=== PATIENT | female | born 1985 | race African-American/Black ===

== ENCOUNTER 2020-02-01 16:52 | Emergency (ER) | payer SELFPAY ==
[2020-02-01] MEDS ORDERED: SODIUM CHLORIDE 1,000 ML IV STA ×2 (17:06→21:45)
--- NOTE | 2020-02-01 17:07 | PDOC ---
Rapid Medical Evaluation Time Seen by Provider: 02/01/20 17:05 Medical Evaluation: 02/01/20 17:06 CC: felt dizzy after getting out of shower, hx of the same and anemia, currently menstruating Exam: bp slightly low, normal color, Plan: labs, ivf, urine Discharge Disposition - Diagnosis Dizziness - Referrals - Patient Instructions - Post Discharge Activity
[2020-02-01 17:08] VITALS: TEMP 98.2; BMI 18.8
[2020-02-01] MEDS ORDERED: ACETAMINOPHEN 1000 MG/100 ML VIAL (NON FORMULARY) IVPB ONE (18:01)
--- NOTE | 2020-02-01 18:08 | PDOC ---
History of Present Illness - General Chief Complaint: Lightheaded Stated Complaint: DIZZINESS Time Seen by Provider: 02/01/20 17:05 History Source: Patient Exam Limitations: No Limitations - History of Present Illness Initial Comments: 02/01/20 18:03 35-year-old female history of asthma, anemia, insomnia, depression on trazodone, polysubstance abuse called EMS for syncope. Patient states she began to menstruate today, took a warm shower, stepped out of the shower and " blacked out " approximately 2 hours ago. Patient states that this has occurred in the past during her menses. Denies preceding symptoms such as chest pain, shortness of breath, dizziness, abdominal pain or any other complaint. Patient admits to daily tobacco and marijuana smoke. Last crack use was 2 months ago, last alcohol intake was 3 days ago. ROS: as above PE: GENERAL: well-appearing, NAD, thin female, poor dentition HEAD: NCAT EYES: EOMI, Pupils equal, round and reactive to light, sclera anicteric, conjunctiva clear ENT: pharynx: no erythema, no exudate, uvula midline NECK: supple CHEST: nontender, no crepitus RESP: clear, no w/r/r CARDIO: rrr, no m/g/r ABD: +BS, soft, nontender, non distended BACK: no midline spinal ttp, no CVAT EXTREMITIES: Normal range of motion, no edema NEUROLOGICAL: Normal speech SKIN: Warm, Dry Is this a multiple visit Asthma Patient?: No Past History - Medical History Allergies/Adverse Reactions: Allergies Allergy/AdvReac Type Severity Reaction Status Date / Time fish derived Allergy Rash Verified 02/01/20 18:15 milk Allergy Verified 02/01/20 18:16 Anemia: Yes Asthma: Yes COPD: No Psychiatric Problems: Yes (Depression, bipolar) - Reproductive History Is Patient Now?: No - Psycho-Social/Smoking History Smoking History: Never smoked Have you smoked in the past 12 months: Yes Number of Cigarettes Smoked Daily: 2 Information on smoking cessation initiated: Yes - Substance Abuse Hx (Audit-C & DAST Scrn) How often the patient has a drink containing alcohol: Never Score: In Men: 4 or > Positive; In Women: 3 or > Positive: 0 Screen Result (Pos requires Nsg. Audit-10AR): Negative In the last yr the pt used illegal drug/Rx for NonMed reason: Yes Score: Yes response is considered Positive: 1 Screen Result (Positive result requires Nsg. DAST-10): Positive *Physical Exam - Vital Signs Last Vital Signs Temp Pulse Resp BP Pulse Ox 98.2 F 73 18 97/68 99 02/01/20 17:02 02/01/20 17:02 02/01/20 17:02 02/01/20 17:02 02/01/20 17:02 ED Treatment Course - LABORATORY CBC & Chemistry Diagram: 02/01/20 18:00 02/01/20 18:00 - RADIOLOGY Radiology Studies Ordered: Category Date Time Status CHEST PA & LAT [RAD] Stat Radiology 02/01/20 18:00 Ordered Medical Decision Making - Medical Decision Making 02/01/20 18:06 35-year-old female history of asthma, anemia called EMS for syncope. Patient states she began to menstruate today, took a warm shower, stepped out of the shower and " blacked out " approximately 2 hours ago. Patient states that this has occurred in the past during her menses. Denies preceding symptoms such as chest pain, shortness of breath, dizziness, abdominal pain or any other complaint. Patient admits to daily tobacco and marijuana smoke. Last crack use was 2 months ago, last alcohol intake was 3 days ago. Syncope BP 97/68, HR 73 labs ordered by [facility] provider urine troponin ecg, cxr IVF IV acetaminophen re assess 7:07pm patient sleeping comfortably in stretcher signed out to KEVIN Reich Discharge - Discharge Information Problems reviewed: Yes Clinical Impression/Diagnosis: Syncope Qualifiers: Syncope type: unspecified Qualified Code(s): R55 - Syncope and collapse Clinical Impression/Diagnosis: (Ruled Out): Dizziness Condition: Stable - Follow up/Referral - Patient Discharge Instructions - Post Discharge Activity
--- OUTSIDE RECORDS SUMMARY | 2020-02-01 18:09 | XMS ---
:1985 Author Organization [facility] Support Name Relationship Address Phone UE Unavailable Unavailable Unavailable [address] [phone] [place] [address] Re-disclosure Warning The records that you are about to access may contain information from federally- assisted alcohol or drug abuse programs. If such information is present, then the following federally mandated warning applies: This information has been disclosed to you from records protected by federal confidentiality rules (42 CFR part 2). The federal rules prohibit you from making any further disclosure of this information unless further disclosure is expressly permitted by the written consent of the person to whom it pertains or as otherwise permitted by 42 CFR part 2. A general authorization for the release of medical or other information is NOT sufficient for this purpose. The Federal rules restrict any use of the information to criminally investigate or prosecute any alcohol or drug abuse patient.The records that you are about to access may contain highly sensitive health information, the redisclosure of which is protected by Article 27-F of the [facility] Public Health law. If you continue you may haveaccess to information: Regarding HIV / AIDS; Provided by facilities licensed or operated by the [facility] Office of Mental Health; or Provided by the [facility] Office for People With Developmental Disabilities. If such information is present, then the following [facility] mandated warning applies: This information has been disclosed to you from confidential records which are protected by state law. State law prohibits you from making any further disclosure of this information without the specific written consent of the person to whom it pertains, or as otherwise permitted by law. Any unauthorized further disclosure in violation of state law may result in a fine or halfway sentence or both. A general authorization for the release of medical or other information is NOT sufficient authorization for further disclosure. Insurance Providers Payer name Policy type Policy ID Covered Covered alliance party's Policy P lyudmila / Coverage alliance party ID relationship to [place] [facility] type reno SELF PAY SP INSURANCE
[2020-02-01 18:16] LABS: BASO % 0.6 % (0-2.0); EOS % 4.2 % (0-4.5); HEMATOCRIT 38.5 % (32.4-45.2); HEMOGLOBIN 12.6 GM/dL (10.7-15.3); LYMPH % 44.4 % (8-40); MCH 28.2 pg (25.7-33.7); MCHC 32.7 g/dl (32.0-36.0); MEAN CELL VOLUME 86.3 fl (80-96); MEAN PLT VOLUME 9.8 fl (7.5-11.1); MONO % 17.4 % (3.8-10.2); NEUT % 33.4 % (42.8-82.8); PLATELET COUNT 173 K/MM3 (134-434); RBC 4.47 M/mm3 (3.60-5.2); RDW 14.2 % (11.6-15.6); WHITE BLOOD COUNT 3.1 K/mm3 (4.0-10.0)
[2020-02-01 18:31] LABS: CHLORIDE 102 mmol/L (98-107); POTASSIUM 3.9 mmol/L (3.5-5.1); SODIUM 137 mmol/L (136-145)
[2020-02-01 18:34] LABS: ALBUMIN 3.4 g/dl (3.4-5.0); ANION GAP 7 MMOL/L (8-16); BLOOD UREA NITROGEN 9.4 mg/dL (7-18); CALCIUM 8.9 mg/dL (8.5-10.1); CO2 27 mmol/L (21-32); GLUCOSE,RANDOM 92 mg/dL (74-106)
[2020-02-01 18:36] LABS: CREATININE 0.7 mg/dL (0.55-1.3); SGOT/AST 27 U/L (15-37); SGPT/ALT 18 U/L (13-61)
[2020-02-01 18:39] LABS: ALK PHOS 86 U/L (45-117); BILIRUBIN,TOTAL 0.3 mg/dL (0.2-1); TOT PROT 7.8 g/dl (6.4-8.2)
--- NOTE | 2020-02-01 20:04 | PDOC ---
*Physical Exam - Vital Signs Last Vital Signs Temp Pulse Resp BP Pulse Ox 98.2 F 73 18 97/68 99 02/01/20 17:02 02/01/20 17:02 02/01/20 17:02 02/01/20 17:02 02/01/20 17:02 - Physical Exam General Appearance: Yes: Appropriately Dressed, Other (asleep arousable. ) ED Treatment Course - LABORATORY CBC & Chemistry Diagram: 02/01/20 18:00 02/01/20 18:00 - ADDITIONAL ORDERS Additional order review: Laboratory Results 02/01/20 02/01/20 18:00 18:00 Sodium 137 Potassium 3.9 Chloride 102 Carbon Dioxide 27 Anion Gap 7 L BUN 9.4 Creatinine 0.7 Est GFR (CKD-EPI)AfAm 130.10 Est GFR (CKD-EPI)NonAf 112.25 Random Glucose 92 Calcium 8.9 Total Bilirubin 0.3 AST 27 ALT 18 Alkaline Phosphatase 86 Total Protein 7.8 Albumin 3.4 Blood Type B POSITIVE Antibody Screen Negative 02/01/20 18:00 RBC 4.47 MCV 86.3 MCHC 32.7 RDW 14.2 MPV 9.8 Neutrophils % 33.4 L Lymphocytes % 44.4 H Monocytes % 17.4 H Eosinophils % 4.2 Basophils % 0.6 - Medications Given in the ED: ED Medications Discontinued Medications Generic Name Dose Route Start Last Admin Trade Name Freq PRN Reason Stop Dose Admin Acetaminophen 1,000 mg 02/01/20 18:01 02/01/20 18:14 Ofirmev Injection - IVPB 02/01/20 18:02 1,000 mg ONCE ONE Administration Sodium Chloride 1,000 mls @ 1,000 mls/hr 02/01/20 17:06 02/01/20 18:07 Normal Saline - IV 02/01/20 18:05 1,000 mls/hr ASDIR STA Administration Medical Decision Making - Medical Decision Making 02/01/20 20:03 Ua pending. 02/01/20 21:46 ua + 1 leuks with bacteria will treat. b/p low. will give NS bolus and reevaluate. 02/01/20 22:32 patient alert awake. b/p 103/77. pulse 77. patient in no distress. will d/c home. patient reports that she is getting picked up by her uncle. Discharge - Discharge Information Problems reviewed: Yes Clinical Impression/Diagnosis: Syncope Qualifiers: Syncope type: unspecified Qualified Code(s): R55 - Syncope and collapse UTI (urinary tract infection) Qualifiers: Urinary tract infection type: acute cystitis Hematuria presence: without hematuria Qualified Code(s): N30.00 - Acute cystitis without hematuria Condition: Stable Disposition: HOME - Additional Discharge Information Prescriptions: Cephalexin Monohydrate [Keflex -] 500 mg PO BID #14 capsule - Follow up/Referral - Patient Discharge Instructions Patient Printed Discharge Instructions: DI for Syncope in Adults (Fainting) Additional Instructions: Take cephalexin as prescribed. Drink plenty of fluids. Follow-up with your do ctor soon as possible return to the emergency room for any worsening symptoms - Post Discharge Activity Work/Back to School Note: Back to Work
[2020-02-01 20:43] LABS: EPI CELLS 17 /uL (0-25.1); HYALINE CASTS 0 /uL (0-3.1); PH,URINE 6.5 (5.0-8.0); URINE APPEARANCE CLEAR; URINE BACTERIA 598 /uL (0-1359); URINE BILIRUBIN NEGATIVE (NEGATIVE); URINE COLOR ORANGE; URINE GLUCOSE (UA) NEGATIVE (NEGATIVE); URINE KETONE NEGATIVE (NEGATIVE); URINE LEUK ESTERASE 1+ (NEGATIVE); URINE NITRITE NEGATIVE (NEGATIVE); URINE PROTEIN 1+ (NEGATIVE); URINE RBC 13 /uL (0-23.9); URINE UROBILINOGEN 0.2 mg/dL (0.2-1.0); URINE WBC 145 /uL (0-25.8)
[2020-02-01 22:32] VITALS: BP 103/77; PULSE 77
--- NOTE | 2020-02-02 10:21 | EKG ---
Test Reason : Blood Pressure : / mmHG Vent. Rate : 069 BPM Atrial Rate : 069 BPM P-R Int : 232 ms QRS Dur : 080 ms QT Int : 448 ms P-R-T Axes : 073 014 063 degrees QTc Int : 480 ms SINUS RHYTHM WITH 1ST DEGREE A-V BLOCK NONSPECIFIC T WAVE ABNORMALITY PROLONGED QT ABNORMAL ECG NO PREVIOUS ECGS AVAILABLE Confirmed by MD RONNI, TOÑA ([id number]) on 02/02/2020 10:21:41 AM Referred By: Confirmed By:TOÑA RUDOLPH MD
== END 2020-02-01 23:45 | disposition home or self-care (01) ==
LOC: JER 16:52
PROC: 3E0333Z Introduction of Anti-inflammatory into Peripheral Vein, Percutaneous Approach (ICD-10-PCS; principal; 2020-02-01)
PROC: 3E0337Z Introduction of Electrolytic and Water Balance Substance into Peripheral Vein, Percutaneous Approach (ICD-10-PCS; 2020-02-01)
PROC: 3E0337Z Introduction of Electrolytic and Water Balance Substance into Peripheral Vein, Percutaneous Approach (ICD-10-PCS; 2020-02-01)
DX: R55 Syncope and collapse (principal); N30.00 Acute cystitis without hematuria
CPT/HCPCS: 36415; 71046-TC-FY; 80053; 81003; 84484; 84703; 85025; 86850; 86900; 86901; 87086; 93005; 93010; 99285-25; J0131

== ENCOUNTER 2021-02-10 13:32 | Emergency (ER) | payer SELFPAY ==
[2021-02-10 13:42] VITALS: BP 148/80; PULSE 95; TEMP 98.6; BMI 18.8
[2021-02-10] MEDS ORDERED: LIDOCAINE HCL 2% JELLY 10 ML CARTRIDGE PR ONE (14:41)
[2021-02-10] MEDS ORDERED: LIDOCAINE HCL 2% JELLY 10 ML CARTRIDGE ONE (14:45)
== END 2021-02-10 14:56 | disposition home or self-care (01) ==
LOC: JERFT 13:32
DX: K59.00 Constipation, unspecified (principal)
CPT/HCPCS: 36415; 82272; 99283-25

== ENCOUNTER 2021-02-27 09:16 | Emergency (ER) | payer SELFPAY ==
[2021-02-27 09:31] VITALS: BP 106/65; PULSE 97; TEMP 97.9; BMI 18.8
== END 2021-02-27 10:30 | disposition home or self-care (01) ==
LOC: JERFT 09:16
DX: K64.4 Residual hemorrhoidal skin tags (principal)
CPT/HCPCS: 99281-25

== ENCOUNTER 2021-03-07 11:40 | Emergency (ER) | payer SELFPAY ==
[2021-03-07 11:53] VITALS: BP 108/80; PULSE 90; TEMP 98.6; BMI 18.8
== END 2021-03-07 13:30 | disposition home or self-care (01) ==
LOC: JER 11:40 → JERFT 11:40
DX: K64.9 Unspecified hemorrhoids (principal)
CPT/HCPCS: 99281-25

== ENCOUNTER 2021-05-15 17:48 | Emergency (ER) | payer OTHER ==
[2021-05-15 17:56] VITALS: BP 112/76; PULSE 108; TEMP 97.8; BMI 19.7
[2021-05-15] MEDS ORDERED: DEXAMETHASONE LIQUID 0.5 MG/5 ML PO ONE (19:22)
== END 2021-05-15 20:54 | disposition home or self-care (01) ==
LOC: JERFT 17:48
DX: L23.9 Allergic contact dermatitis, unspecified cause (principal)
CPT/HCPCS: 99283-25